=== PATIENT | male | born 1945 | race Caucasian/White ===

== ENCOUNTER 2019-03-30 12:26 | Emergency (ER) | payer OTHER, MEDICARE ==
[~2019-03-30] VITALS: Ht 182.9 cm; Wt 104.3 kg
[~2019-03-30 12:26] MED LIST: ADULT LOW DOSE81 MG PO; ALLOPURINOL 30300 M1 PO; AMLODIPINE-BEN1 EAC3 PO; CLARITIN10 MG PO; CRESTOR5 MG PO; FISH OIL 1,001000 M2 PO; GLUCOSAMINE HC500 MG PO; HYDROCODONE-AP1 EAC6 PO; INDOMETHACIN 5050 MG PO; LEVOTHROID100 MC1 PO; LEVOTHYROXIN0.137 M1 PO; NORCO 5-325 TA1 EACH PO; PERCOCET PO; PRILOSEC 20 MG20 MG PO; SENOKOT-S1 TA1 PO; UNICOMPLEX M TA1 TA1 PO; XARELTO10 MG PO
[2019-03-30 13:01] LABS: BASOPHILS 0.6 % (0.0-2.0); EOSINOPHILS 0.7 % (0.0-3.0); HEMATOCRIT 42.9 % (42.0-52.0); HEMOGLOBIN 14.4 gm/dL (14.0-18.0); LYMPHOCYTES 10.1 % (24.0-44.0); MCH 28.8 pg (26.0-34.0); MCHC 33.6 g/dL (28.0-37.0); MCV 85.6 fL (80.0-100.0); MONOCYTES 6.2 % (1.0-8.0); PLATELET COUNT 319 thou/uL (150-400); POLYS 82.4 % (36.0-66.0); RBC 5.01 mil/uL (4.50-6.00); RDW 13.9 % (10.5-14.5); WBC 19.4 thou/uL (4.0-11.0)
[2019-03-30 13:13] LABS: CALCIUM 9.6 mg/dL (8.5-10.1); CREATININE 1.2 mg/dL (0.7-1.3); POTASSIUM 3.8 mmol/L (3.5-5.1)
[2019-03-30] MEDS ORDERED: TUMS PO (13:16)
[2019-03-30 13:19] LABS: ALBUMIN 3.7 g/dL (3.4-5.0); TOTAL BILIRUBIN 0.5 mg/dL (<0.1-1.0)
[2019-03-30 13:29] LABS: URINE BILIRUBIN NEGATIVE (Negative); URINE BLOOD 3+ (Negative); URINE CLARITY CLEAR; URINE COLOR YELLOW; URINE GLUCOSE-RANDOM* NEGATIVE (Negative); URINE KETONES TRACE (Negative); URINE LEUKOCYTES TRACE (Negative); URINE NITRITE NEGATIVE (Negative); URINE PROTEIN (DIPSTICK) 1+ (Negative); URINE UROBILINOGEN 0.2 E.U./dl (0.2-1.0)
[2019-03-30 13:39] LABS: BACTERIA 1-9 Few /HPF (None Seen); CASTS None Seen /LPF (None Seen); CRYSTALS None Seen /LPF (None Seen); SQUAMOUS None Seen /LPF (0-3); URINE WBC 6-15 Few /HPF (0-5)
[2019-03-30] MEDS ORDERED: NORCO 5-325 TA1 EAC1 PO (15:57)
[2019-03-30] MEDS ORDERED: ZOFRAN ODT4 MG PO (15:57)
[2019-03-30 16:20] VITALS: BP 141/74
== END 2019-03-30 16:20 | disposition home or self-care (01) ==
LOC: ER 12:26
PROVIDERS: Emergency Medicine
DX: N20.0 Calculus of kidney (principal); I10 Essential (primary) hypertension; E78.00 Pure hypercholesterolemia, unspecified; E03.9 Hypothyroidism, unspecified; K21.9 Gastro-esophageal reflux disease without esophagitis; Z96.641 Presence of right artificial hip joint; Z90.49 Acquired absence of other specified parts of digestive tract; Z88.0 Allergy status to penicillin

== ENCOUNTER → 2019-08-18 | Outpatient (CLI) | payer OTHER, MEDICARE ==
[~2019-08-18] MED LIST changes: +NORCO 5-325 TA1 EAC1 PO; +TUMS PO; +ZOFRAN ODT4 MG PO
== END ==
LOC: MRI 09:39
DX: M47.817 Spondylosis without myelopathy or radiculopathy, lumbosacral region (principal); M43.17 Spondylolisthesis, lumbosacral region; M51.37 Other intervertebral disc degeneration, lumbosacral region; N28.1 Cyst of kidney, acquired

== ENCOUNTER 2020-02-16 14:47 | Inpatient (IN) | payer OTHER, MEDICARE ==
[~2020-02-16] VITALS: Ht 182.9 cm; Wt 108.9 kg
[2020-02-16] VITALS (14 sets, daily range): BP systolic 124–194; BP diastolic 59–96
[~2020-02-16 14:47] MED LIST changes: -LEVOTHYROXIN0.137 M1 PO; +SYNTHROID150 MCG PO
[2020-02-16 15:24] LABS: ABSOLUTE NEUTROPHILS 3.8 thou/uL (1.4-8.2); BASOPHILS 0.6 % (0.0-2.0); EOSINOPHILS 2.4 % (0.0-3.0); HEMATOCRIT 38.3 % (42.0-52.0); HEMOGLOBIN 13.2 gm/dL (14.0-18.0); LYMPHOCYTES 18.8 % (24.0-44.0); MCHC 34.4 g/dL (28.0-37.0); MCV 90.3 fL (80.0-100.0); MONOCYTES 9.3 % (1.0-8.0); PLATELET COUNT 238 thou/uL (150-400); POLYS 68.9 % (36.0-66.0); RBC 4.24 mil/uL (4.50-6.00); RDW 12.2 % (10.5-14.5); WBC 5.6 thou/uL (4.0-11.0)
[2020-02-16 15:36] LABS: ANION GAP 12 mmol/L (7-16); BUN 20 mg/dL (7-18); CALCIUM 9.5 mg/dL (8.5-10.1); CHLORIDE 105 mmol/L (98-107); CO2 25 mmol/L (21-32); CREATININE 1.1 mg/dL (0.7-1.3); GLUCOSE 107 mg/dL (74-106); POTASSIUM 4.1 mmol/L (3.5-5.1); SODIUM 142 mmol/L (136-145)
[2020-02-16 15:38] LABS: APTT 27.2 Seconds (24.5-32.8)
[2020-02-16 15:45] LABS: SGOT 27 U/L (15-37); SGPT 33 U/L (30-65); TOTAL BILIRUBIN 0.4 mg/dL (0.2-1.0); TOTAL PROTEIN 7.7 g/dL (6.4-8.2); TROPONIN-I <0.06 ng/mL (<0.06)
--- NOTE | 2020-02-16 16:31 | EKG ---
[facility] [place] [address] ELECTROCARDIOGRAM REPORT Name: HARINI HU Room #: [facility]#: [id number] Admission: 02/16/20 Attend Phys: Discharge: Date of : 47 Report #: [id number] THIS REPORT FOR: cc: Franki Rivas James A. DO Lundgren, Craig H. MD [facility] ~ THIS REPORT FOR: //name// [facility] ED Test Date: 2020-02-16 Test Time: 15:20:43 Pat Name: HARINI HU Department: Room: Gender: Real Estate Inspector: ebenoklupillo : 1945 Requested By: Lj Argueta Order Number: [id number] MD: Santhosh Canales Measurements Intervals [place] Rate: 56 P: 38 CT: 49 QRS: 38 QRSD: 99 T: 35 QT: 486 QTc: 470 Interpretive Statements Sinus bradycardia Otherwise normal tracing Compared to ECG 10/06/2015 08:45:23 No significant change was found Electronically Signed On 02-16-2020 16:29:03 CDT by Santhosh Canales [email or web address] <ELECTRONICALLY SIGNED> By: Santhosh Canales MD, [facility] 02/16/20 1629 1520 1520 Santhosh Canales MD, [facility] /EPI
[2020-02-16] MEDS ORDERED: NAPROSYN500 M1 PO (18:24)
[2020-02-16] MEDS ORDERED: AMBIEN5 MG PO (18:24)
--- NOTE | 2020-02-16 19:10 | NUR ---
SHINE () [phone] PLEASE CALL HER WITH ANY UPDATES THROUGHOUT THE NIGHT OR ANY TIME DURING STAY
--- NOTE | 2020-02-16 19:40 | NUR ---
PLEASE CALL PT'S PHARMACY TOMORROW 02/17/2020 DURING BUSINESS HOURS TO FIND OUT WHAT BP MEDICATION PT TAKES AND DOSAGE. PT DOES NOT REMEMBER AND IT IS NOT IN PT'S MEDICATION CLAIM HISTORY IN THE EMAR. ATTEMPTED TO CALL BY THIS NURSE AT THIS TIME AND PHARMACY IS CLOSED. PHONE: [phone]. MED REC IS COMPLETED OTHER THAN THIS MEDICATION.
--- NOTE | 2020-02-16 22:30 | NUR ---
PT CAME VIA CART ACCOMPANIED BY DRIVE IN WAITER/WAITRESS TO ICU. PT ALERT AND ORIENTED x4. STRENGTH IS STRONG IN ALL EXTREMITIES. BP WAS SYSTOLIC >190 ON ARRIVAL.CARDENE DRIP WAS TURNED OFF. PT WAS PUT BACK ON THE CARDENE DRIP AT 5MG/HR. NIH STROKE SCALE ASSESSMENT WAS PERFORMED. PT SCORED 0. PT WAS ORIENTED TO THE ROOM AND ICU CALL LIGHT. FALL PRECAUTIONS IN PLACE. DR. GOMEZ NOTIFIED OF PT ARRIVAL AND ORDERED A MRI FOR TOMORROW MORNING. NO CONCERNS AND COMPLAIN NOTED FROM THE PT AT THIS MOMENT. CONTINUE TO MONITOR.
[2020-02-17] VITALS (39 sets, daily range): BP systolic 104–168; BP diastolic 58–107
[2020-02-17 06:02] LABS: HEMATOCRIT 35.6 % (42.0-52.0); HEMOGLOBIN 12.1 gm/dL (14.0-18.0); MCH 30.8 pg (26.0-34.0); MCHC 34.1 g/dL (28.0-37.0); MCV 90.4 fL (80.0-100.0); PLATELET COUNT 213 thou/uL (150-400); RBC 3.94 mil/uL (4.50-6.00); RDW 12.4 % (10.5-14.5); WBC 4.2 thou/uL (4.0-11.0)
[2020-02-17 06:17] LABS: ANION GAP 10 mmol/L (7-16); BUN 13 mg/dL (7-18); CALCIUM 8.6 mg/dL (8.5-10.1); CHLORIDE 108 mmol/L (98-107); CHOLESTEROL 192 mg/dL (<200); CO2 23 mmol/L (21-32); CREATININE 0.8 mg/dL (0.7-1.3); GLUCOSE 132 mg/dL (74-106); HDL CHOLESTEROL 40 mg/dL (>40); LDL CHOLESTEROL 113 mg/dL (<100); MAGNESIUM 2.1 mg/dL (1.8-2.4); POTASSIUM 3.5 mmol/L (3.5-5.1); SODIUM 141 mmol/L (136-145); TC:HDL 4.8 Ratio (Not establshd); TRIGLYCERIDE 195 mg/dL (<150); VLDL 39 mg/dL (<40)
[2020-02-17 06:20] LABS: SERUM ASSESSMENT Clear
[2020-02-17 08:15] LABS: ABSOLUTE NEUTROPHILS 3.2 thou/uL (1.4-8.2); METAMYELOCYTES 1 %
[2020-02-17 08:16] LABS: ANISOCYTOSIS SLIGHT
--- NOTE | 2020-02-17 10:32 | NUR ---
metal flow coordinator to see patient. this rn at bedside upon arrival of patient to ER. patient severely aphasic and confused however today speech is clear and fluent. pt is A&Ox3 with NIHSS-0. stroke education given to patient and stroke education left with patient to give to family. I will continue to follow this patient through stay. Significant improve since yesterday.
--- NOTE | 2020-02-17 13:51 | NUR ---
DR. LEE ROUNDED ON PATIENT AT 1000, NO NEW ORDERS CONTINUE WITH PLAN OF CARE. DR. GOMEZ ROUNDED AT 1100, PLAN TO TRANSFER PT OUT OF ICU AFTER MRI. PATIENT STABLE NO CHANGES IN VSS, NO NEURO CHANGES. TO MRI AT 1400 WITH THIS RN.
--- NOTE | 2020-02-17 17:00 | NUR ---
INITIAL ASSESSMENT: SW reviewed chart and spoke with nursing and attending physician. Pt was admitted from home due to acute CVA. Pt currently in ICU. Therapy evals and 5N consult ordered. Neuro consulted. Pt to have MRI today. MANDO spoke with pts' , Martina, via phone. Introduced role of SW. Pt is normally alert/orientated x 4. Pt and spouse live at home. Prior to admission, pt was independent with ADLs. Pt with hx of spinal stenosis and normally uses a cane or walker to assist with ambulation. Pt is planning on having back surgery in February. No hx of services or post-acute placement. Pt has done outpatient therapy at [facility]. Pt's PCP is DR. Rivas. Pt's goal is to return home when medically stable. Awaiting therapy and 5N evals at this time. SW is following to assist as needed with discharge planning.
[2020-02-18 00:07] LABS: GLYCOHEMOGLOBIN (HGB A1C) 6.6 % (4.8-5.6)
[2020-02-18 04:00] VITALS: BP 182/85
--- NOTE | 2020-02-18 07:26 | NUR ---
PROGRESS PT TRANSFERRED FROM ICU VIA BED TO ROOM 460 VSS BP SLIGHTLY ELEVATED 182/85 REMAINING VS WNL. PT DENIES PAIN NO SKIN BREAKDOWN NOTED, EXTERNAL CATHETER IN PLACE PT UP WITH 1 AND GB HOPES TO DC HOME TODAY CONTINUE POC
[2020-02-18 07:47] VITALS: BP 158/79
--- NOTE | 2020-02-18 16:11 | NUR ---
THERAPY INDICATED THEY ANTICIPATED DOING AFTERNOON TREATS WITH PT. AWAITING NOTES AND RECOMMENDATIONS FROM THESE TREATS TO DETERMINE DC NEEDS. PT HAS FWW AND CANE TO ASSIST WITH MOBILITY UPON DC. 5N ASSESSED AND INDICTED THAT PT IS TOO HIGH LEVEL FOR ACUTE REHAB OF THERAPY SESSIONS THIS AM. CM TO FOLLOW INDICATED WITH DC PLANNING.
--- NOTE | 2020-02-18 16:33 | NUR ---
Assumed pt care this am, VS have been stable new medication given for elevated bp. Speech is not slurred and no facial droops have been noted. WAs able to work with PT and OT today, condom cat in place drainnig light yellow urine. Diet and medications are well lorated. POC followed with no signs or verbalizatiosn of distress noted.
[2020-02-18 16:41] VITALS: BP 147/95
[2020-02-18] MEDS ORDERED: PLAVIX 75 MG TA75 MG PO (17:20)
[2020-02-18] MEDS ORDERED: ASA81BEC PO (17:20)
[2020-02-18] MEDS ORDERED: BENAZEPRIL HCL20 MG PO (17:20)
[2020-02-18] MEDS ORDERED: LIPITOR 20 MG T20 M1 PO (17:20)
--- NOTE | 2020-02-22 18:41 | EEG ---
[facility] [place] [address] ELECTROENCEPHALOGRAM Name: HARINI HU Room #: 460-P [facility] IN M.R.#: [id number] Admission: 02/16/20 Attend Phys: Aramis Nava MD Discharge: 02/18/20 Date of : 47 Report #: [id number] THIS REPORT FOR: //name// CC: Franki Nava DATE OF SERVICE: 02/17/2020 This patient is being evaluated for an episode of altered mental status. EEG was done to evaluate that. EEG demonstrates a background activity of about 8 Hz and 30 microvolt. It goes slower than that. The patient goes to sleep that is associated with bilateral slowing and vertex sharp waves. Photic stimulation is unremarkable. Throughout the record, no active epileptiform activity was noticed. IMPRESSION: This patient's EEG is intermixed with theta range slowing on both sides. That is a nonspecific abnormality, which can occur with dementia, encephalopathy, effect of psychotropic medication, drowsiness, etc. No active epileptiform activity which can explain the patient's symptoms were noticed. Thank you very much for this referral. <ELECTRONICALLY SIGNED> By: Diego Mendoza MD 02/22/20 1841 0610 [id number] Diego Mendoza MD /nt
--- NOTE | 2020-02-22 18:41 | HC ---
[facility] [address] CONSULTATION Name: FRITZHARINI Room #: 460-P [facility] IN M.R.#: [id number] Admission: 02/16/20 Attend Phys: Aramis Nava MD Discharge: 02/18/20 Date of : 47 Report #: [id number] THIS REPORT FOR: cc: Franki Rivas James A. DO Khosla, Parveen K. MD ~ CC: Franki Nava DATE OF SERVICE: 02/16/2020 HISTORY OF PRESENT ILLNESS: This is a 74-year-old male patient who was seen by me in the Emergency Room for stroke protocol. The note is being dictated now. History and exam was done very acutely in this patient and this is an abbreviated note and I will dictate an addendum later on. The patient presented with acute onset of speech difficulty and marked aphasia. It took some time to determine the time of onset, but it looks like his last seen normal was around 12:45. He was definitely normal at that time, but he was probably normal even after that some time. Facial problem was also noticed at that time, so he was well within the window. In fact, he was within [address] Argueta has already ordered TPA on him. He has ordered the TPA after confirming that he does not have any contraindication. I went over with the patient again to see if there is any contraindication. The mentioned that he has no contraindication and I went over the exclusion criteria one by one. I reviewed his CT scan and then I reviewed about 1 suspicion area with the radiologist, who read the CT. He does not have any concern about the CT and he indicated there are no acute changes, but CT scan does show chronic changes, which does increase his chances of a bleed. The patient is not able to understand the things because he is completely aphasic. He starts a sentence, then his speech gets garbled and he cannot bring it out. So, I talked to the . I discussed with her indication, potential complication, and alternatives of TPA. I discussed with him that at this stage we cannot say with certainty that he had a stroke. If we try to confirm by doing further testing, either we will delay the treatment or we will go outside the window. We have to move with a presumptive diagnosis of stroke. She understood that very well. She understands the catastrophic complication of intracerebral bleed, which is fatal many times. She also understands his chance of bleeding is going to be higher because of deep white matter ischemic changes. After explaining all of it to the patient, TPA was started. The patient's blood was checked first, his GFR is 66. CT stroke protocol is already ordered. If he does have a thrombus, then he will be transferred to another facility, but if he does not have thrombus, he will be monitored here in ICU. He can have a dissection of one of the vessels because he does go to a chiropractor, but that is not considered a strict contraindication and that is a relative contraindication. The patient will be going to ICU and if he needs blood pressure monitoring and titration that will [address] [address] CONSULTATION Name: HARINI HU Room #: 460-P [facility] IN [facility].#: [id number] Admission: 02/16/20 Attend Phys: Aramis Nava MD Discharge: 02/18/20 Date of : 47 Report #: [id number] be done by Cardene because his heart rate is running low, his blood pressure was high, he did get the first dose, but his pulse rate did not change. Thank you very much for allowing me to share in the management of this patient and we will dictate another note after other workup is available. <ELECTRONICALLY SIGNED> By: Diego Mendoza MD 02/22/20 1841 1558 1843 Diego Mendoza MD /nt
== END 2020-02-18 20:14 | disposition home or self-care (01) | DRG 61 ==
LOC: ER 14:47 → ICU 17:13 → EROBS 17:13 → ICU 20:30 → 4W 02-17 20:43
PROVIDERS: Emergency Medicine; Nurse Practitioner; ADMIT Internal Medicine
DX: I63.9 Cerebral infarction, unspecified (principal); G93.41 Metabolic encephalopathy; I16.1 Hypertensive emergency; I16.0 Hypertensive urgency; I10 Essential (primary) hypertension; E78.00 Pure hypercholesterolemia, unspecified; Z96.641 Presence of right artificial hip joint; E03.9 Hypothyroidism, unspecified; K21.9 Gastro-esophageal reflux disease without esophagitis; E78.5 Hyperlipidemia, unspecified; G89.29 Other chronic pain; M54.9 Dorsalgia, unspecified; E66.9 Obesity, unspecified; C61 Malignant neoplasm of prostate; G31.9 Degenerative disease of nervous system, unspecified; Z79.82 Long term (current) use of aspirin; Z90.49 Acquired absence of other specified parts of digestive tract; Z88.0 Allergy status to penicillin; Z68.32 Body mass index [BMI] 32.0-32.9, adult; Z79.899 Other long term (current) drug therapy
CPT/HCPCS: 10045; 10078

== ENCOUNTER → 2020-02-26 | Outpatient (CLI) | payer OTHER, MEDICARE ==
[~2020-02-26] MED LIST changes: +AMBIEN5 MG PO; +ASA81BEC PO; +BENAZEPRIL HCL20 MG PO; +LIPITOR 20 MG T20 M1 PO; +NAPROSYN500 M1 PO; +PLAVIX 75 MG TA75 MG PO
== END ==
LOC: SJCVC 15:03
PROVIDERS: ATTEND Internal Medicine
DX: Z01.810 Encounter for preprocedural cardiovascular examination (principal); R06.83 Snoring; I10 Essential (primary) hypertension; M17.11 Unilateral primary osteoarthritis, right knee; M48.00 Spinal stenosis, site unspecified; Z79.82 Long term (current) use of aspirin; Z79.899 Other long term (current) drug therapy; Z86.73 Personal history of transient ischemic attack (TIA), and cerebral infarction without residual deficits

== ENCOUNTER → 2020-03-09 | Outpatient (CLI) | payer OTHER, MEDICARE | LOC: SJCVCIMAG 03-03 15:57 | PROVIDERS: ATTEND Internal Medicine | DX: R06.02 Shortness of breath (principal); I10 Essential (primary) hypertension; E78.5 Hyperlipidemia, unspecified; E66.9 Obesity, unspecified; Z79.82 Long term (current) use of aspirin; Z79.899 Other long term (current) drug therapy; Z88.0 Allergy status to penicillin ==

== ENCOUNTER → 2020-03-23 | Outpatient (CLI) | payer OTHER, MEDICARE ==
[~2020-03-23] MED LIST changes: +ALLOPURINOL 10100 M3 PO; +BENAZEPRIL HCL40 MG PO; +CRESTOR10 MG PO
== END ==
LOC: SJCVC 10:31
PROVIDERS: ATTEND Internal Medicine
DX: I10 Essential (primary) hypertension (principal); E78.5 Hyperlipidemia, unspecified; Z86.73 Personal history of transient ischemic attack (TIA), and cerebral infarction without residual deficits; Z79.82 Long term (current) use of aspirin; Z79.899 Other long term (current) drug therapy; M17.11 Unilateral primary osteoarthritis, right knee

== ENCOUNTER 2020-03-30 08:02 | Inpatient (IN) | payer OTHER, MEDICARE ==
[2020-03-30] VITALS (36 sets, daily range): BP systolic 118–213; BP diastolic 63–104
[~2020-03-30] VITALS: Ht 182.9 cm; Wt 109.9 kg
[~2020-03-30 08:02] MED LIST changes: -ALLOPURINOL 10100 M3 PO; -BENAZEPRIL HCL40 MG PO
[2020-03-30] MEDS ORDERED: ALLOPURINOL 10100 M3 PO (09:21)
[2020-03-30 09:23] LABS: HEMATOCRIT 38.3 % (42.0-52.0); HEMOGLOBIN 12.8 gm/dL (14.0-18.0); MCH 29.9 pg (26.0-34.0); MCHC 33.5 g/dL (28.0-37.0); MCV 89.2 fL (80.0-100.0); RBC 4.3 mil/uL (4.50-6.00); RDW 12.7 % (10.5-14.5); WBC 4.6 thou/uL (4.0-11.0)
[2020-03-30 09:28] LABS: CALCIUM 9.5 mg/dL (8.5-10.1); CREATININE 1.1 mg/dL (0.7-1.3)
--- NOTE | 2020-03-30 14:31 | EKG ---
[facility] [place] [place] [address] ELECTROCARDIOGRAM REPORT Name: FRITZHARINI Huizar Room #: 250-P [facility] IN M.R.#: [id number] Admission: 03/30/20 Attend Phys: Maurizio Hernandez Discharge: Date of : 47 Report #: [id number] THIS REPORT FOR: cc: Franki Rivas James A. DO Couchonnal, Luis F. MD ~ THIS REPORT FOR: //name// [facility] Test Date: 2020-03-30 Test Time: 09:23:45 Pat Name: HARINI HU Department: Room: 250 Gender: M Camp Program Director: RADHA : 1945 Requested By: Maurizio Hernandez Order Number: [id number] MD: Lam Hull Measurements Intervals [place] Rate: 56 P: 19 IA: 195 QRS: 17 QRSD: 98 T: 32 QT: 439 QTc: 424 Interpretive Statements Sinus rhythm Compared to ECG 02/16/2020 15:20:43 Sinus bradycardia no longer present Electronically Signed On 03-30-2020 14:31:07 CDT by Lam Hull [email or web address] <ELECTRONICALLY SIGNED> By: Lam Hull MD 03/30/20 1431 0923 Lam Hull MD /EPI
[2020-03-30 14:44] LABS: HEMOGLOBIN 12.8 gm/dL (14.0-18.0); MCH 29.9 pg (26.0-34.0); MCHC 33.8 g/dL (28.0-37.0); MCV 88.5 fL (80.0-100.0); RBC 4.29 mil/uL (4.50-6.00); RDW 12.8 % (10.5-14.5); WBC 4.8 thou/uL (4.0-11.0)
[2020-03-30 14:50] LABS: APTT 30.6 Seconds (24.5-32.8); PROTIME 10.3 Seconds (9.3-11.4)
[2020-03-30 14:54] LABS: ALBUMIN 3.7 g/dL (3.4-5.0); CREATININE 1.1 mg/dL (0.7-1.3); POTASSIUM 3.7 mmol/L (3.5-5.1); TOTAL BILIRUBIN 0.5 mg/dL (0.2-1.0); TOTAL PROTEIN 7.1 g/dL (6.4-8.2)
[2020-03-30 15:00] LABS: CALCIUM 9.6 mg/dL (8.5-10.1)
--- NOTE | 2020-03-30 17:19 | NUR ---
ASSUMED CARE AT 1515, ASSESSMENT AND VITAL SIGNS COMPLETED PER ICU PROTOCOL. PT ARRIVED FROM CATH LABX2 PERSONNEL. PT RECEIVED TPA, RN FOLLOWING STROKE PROTOCOL. DR. GOMEZ BEDSIDE GIVING ORDERS. RN WENT TOOK PT TO CT WITH POPULATION HEALTH MANAGER FOR CT W/ CONTRAST. PROTECTOR PLATE ATTACHER WAS GIVEN UPON RESULTS. PLAN OF CARE DISCUSSED WITH DR. GOMEZ, RN WILL CONTINUE TO MONITOR.
[2020-03-31] VITALS (36 sets, daily range): BP systolic 130–191; BP diastolic 61–111
[2020-03-31 00:02] LABS: CHOLESTEROL 143 mg/dL (<200); HDL CHOLESTEROL 52 mg/dL (>40); LDL CHOLESTEROL 58 mg/dL (<100); SERUM ASSESSMENT Clear; TC:HDL 2.8 Ratio (Not establshd); TRIGLYCERIDE 166 mg/dL (<150); VLDL 33 mg/dL (<40)
[2020-03-31 04:30] LABS: HEMATOCRIT 32.8 % (42.0-52.0); HEMOGLOBIN 11.2 gm/dL (14.0-18.0); MCH 30.2 pg (26.0-34.0); RBC 3.69 mil/uL (4.50-6.00); WBC 4.5 thou/uL (4.0-11.0)
[2020-03-31 05:10] LABS: CALCIUM 8.6 mg/dL (8.5-10.1); POTASSIUM 3.5 mmol/L (3.5-5.1)
--- NOTE | 2020-03-31 06:19 | NUR ---
Received report from offgoing RN and assumed patient care. Patient is AAOx3 and noted to have sensory loss in the left foot but regained sensation this a.m. Patient placed in restraints d\t impulsiveness and this RN felt he may try to take off IV as he was taking off the monitor leads and educated several time before the restraints were placed. VS remained stable and no acute events occurred during this shift.
--- NOTE | 2020-03-31 07:40 | NUR ---
RECEIVED REPORT FROM EFRAIN GOMEZ. ASSUMED CARE OF PATIENT. NIH SCORE 0 AT THIS TIME.
--- NOTE | 2020-03-31 14:54 | NUR ---
chart review. unable to visit with pt, resting. cm spoke with his geremias via phone . intro to cm, transition of care, ie rehab. noted per chart pt was independent prior to hospital . has cane and walker. drives vehicle. outpt rehab at [facility] in past. no inpt rehab. will cont following as needed for dc needs. 5n following.
--- NOTE | 2020-03-31 17:36 | HC ---
[facility] [place] [address] CONSULTATION Name: HARINI HU Room #: [facility] IN .R.#: [id number] Admission: 03/30/20 Attend Phys: Maurizio Hernandez Discharge: Date of : 47 Report #: [id number] THIS REPORT FOR: cc: Franki Rivas,Diego Parra MD ~ CC: Maurizio Rivas DATE OF SERVICE: 03/30/2020 HISTORY OF PRESENT ILLNESS: This 74-year-old male patient who was seen by me for a code stroke. The patient was discussed with nurses multiple times and I talked to the mortgage coordinator multiple times, numerous discussions with the was carried out. I talked to the radiologist and subsequently to the neuroradiologist. The patient started having acute onset of aphasia around 1:15. This was after 1-2 hours of cardiac catheterization and he was fine after the cardiac catheterization at least for 1-2 hours. He did not get any blood thinner in the cardiac catheterization. He has severe coronary artery disease, but when I saw him first time he was completely aphasic. It has fluctuated and the problem is he had similar symptoms, the last time he was here and he recovered from it, but we did not find a whole lot at that time. He did receive TPA at that time. He did not have any focal deficit, but some neglect was noticed as I understood, but that is questionable finding, I never saw any focal motor deficit. I had numerous discussions with the patient's . I told her that I am not certain that what the right course is. He has symptoms suggestive of left hemispheric ischemic event, so we can think to do is give him TPA, but the problem is he was like this and the last time we did not find anything. I got the CT angio and perfusion done, but went ahead and had the TPA mixed. The initial report from the radiologist was that this patient's perfusion scan is normal. She was going to send it to the neuroradiologist. Therefore, I canceled his TPA, but subsequently neuroradiologist think he has a defect on the perfusion on the left side. Because of that, I went ahead and gave him TPA. His blood pressure has gone up in the meantime and we are starting a Cardene drip in this patient to lower the blood pressure. A decision to give TPA was very difficult and both sides of the things were discussed with the . She described it as a walton. That is what I think it is because if we give him TPA and if he bleeds we wish we have not done it. If we do not give him TPA and he becomes worse than we wish we had given TPA. She understood both aspects very well and ultimately it was decided to give him TPA after the neuroradiologist had a different view than the radiologist about the perfusion scan, but we do not have ____. is comfortable with it. 0.9 mg/kg of the body weight and 0.6 mg/kg of the body weight has been found to be equally effective. Therefore, [address] [address] CONSULTATION Name: HARINI HU Room #: 250-P [facility] IN M.R.#: [id number] Admission: 03/30/20 Attend Phys: Dillon. Lammoglia Discharge: Date of : 47 Report #: [id number] I gave him a dose of 0.6 mg/kg of the body weight. We will keep the blood pressure somewhat high and I will give him a fluid bolus. The patient appeared to be showing some improvement since that time and it is very difficult case and the understood and this is what she wanted to do and I have discussed virtually all the aspect with the in great detail. Thank you very much for this referral and if you have any question, please feel free to contact me. I spent about 90 minutes of time taking care of this patient today and majority of time was spent counseling and in the critical care. <ELECTRONICALLY SIGNED> By: Diego Mendoza MD 03/31/20 1736 1613 1641 Diego Mendoza MD /nt
--- NOTE | 2020-03-31 17:36 | HC ---
[facility] [place] [address] CONSULTATION Name: HARINI HU Room #: [facility] IN .R.#: [id number] Admission: 03/30/20 Attend Phys: Maurizio Hernandez Discharge: Date of : 47 Report #: [id number] THIS REPORT FOR: cc: Franki Rivas,Diego Parra MD ~ CC: Maurizio Rivas DATE OF SERVICE: 03/30/2020 HISTORY OF PRESENT ILLNESS: This is a 74-year-old male patient who was seen by me as a stroke protocol. I discussed the patient with fiscal manager, resource coordinator, nurse looking after this patient, patient's numerous times today. The patient was noticed to have acute onset of severe aphasia at about 1:15. This happened after geoscience laboratory technician, fiscal manager and the nurses confirmed that he did not get any blood thinner including an Angiocath or heparin during this procedure. He used to be on aspirin and Plavix and presently he just takes aspirin, he is not on Plavix. He was examined repeatedly and his aphasia continued and it was severe. He did not have any other focal deficit on my examination, but the nurses have noticed that he has trouble with the left side of the body and he was not moving and had some neglect there. My problem with this patient DICTATION ENDS HERE <ELECTRONICALLY SIGNED> By: Diego Mendoza MD 03/31/20 1736 1546 1552 Diego Mendoza MD /nt
--- NOTE | 2020-03-31 17:37 | EEG ---
[facility] [place] [address] ELECTROENCEPHALOGRAM Name: HARINI HU Room #: 250-P [facility] IN M.R.#: [id number] Admission: 03/30/20 Attend Phys: Maurizio Thomson Discharge: Date of : 47 Report #: [id number] THIS REPORT FOR: //name// CC: Maurizio Rivas DATE OF SERVICE: 03/31/2020 FINDINGS: This patient keeps having episodes of TIA-like symptoms. EEG was done by placing the electrode by standard 10-20 system of electrode placement. Both referential and sequential montages were used for recording. Background activity in this patient's EEG is about 9 Hz and 30 microvolts. The patient went to sleep and that is associated with bilateral slowing and vertex sharp waves. Throughout the record, no active epileptiform activity was noticed. IMPRESSION: This EEG does not demonstrate any clear-cut epileptiform activity. It is intermixed with slight theta range slowing, which is a nonspecific finding. <ELECTRONICALLY SIGNED> By: Diego Mendoza MD 03/31/20 1737 1601 1609 Diego Mendoza MD /nt
--- NOTE | 2020-03-31 18:50 | NUR ---
PT. JUST ROLLED INTO OUR UNIT IN THE WHEELCHAIR FROM ICU, REPORT WAS GIVEN. HE IS AOX4, AMBULATES TO HIS BED STEADILY WITH ONE ASSIST. DENIES ANY NUMBNESS OR TINGLING AT PRESENT, VISUAL FIELD INTACT WEARS GLASSES. ON THE PHONE WITH FAMILY MEMBERS DISCUSSING HIS POSSIBLE DISCHARGE TOMORROW. IV SITE IS C,D,I NO SIGN'S IF INFILTRATION, FLUIDS INFUSING NS AT 100/HR. SINUS KAYLEE ON THE MONITOR AT 59, NO ECTOPY. RIGHT GROIN SITE IS HEMATOMA FREE, C, D,I.
[2020-04-01 00:24] VITALS: BP 154/95
[2020-04-01 03:37] VITALS: BP 174/71
--- NOTE | 2020-04-01 04:17 | NUR ---
ASSUMED PT CARE AT 1900. PT IS ALERT AND ORIENTED. NO SIGN OF DISTRESS NOTED PT IS STABLE. DENIES ANY PAIN. FALL PRECAUTION IN PLACE. ASSESSMENT COMPLETED AND DOCUMENTED. GROIN SITE IS INTACT. SCHEDULED MEDS ADMINISTERED TO PT. NO SIGN OF DISTRESS NOTED IN PT. CONTINUE TO MONITOR PT. ELEVATED BP NOTED. NO FURTHER NEEDS AT THIS TIME
[2020-04-01 08:00] VITALS: BP 175/108
[2020-04-01] MEDS ORDERED: PLAVIX 75 MG TA75 MG PO (09:19)
[2020-04-01] MEDS ORDERED: BENAZEPRIL HCL40 MG PO (09:48)
--- NOTE | 2020-04-01 10:59 | NUR ---
PT ASSESSED, VSS, AM MEDS GIVEN, PT REFUSED ALLOPURINAL STATING THAT HE ONLY TAKES IT WHEN HE NEEDS IT, POC REVIEWED, PT VERBALIZED UNDERSTANDING, DR MOE IN TO SEE PT, PLANS BEING MADE FOR DISCHARGE TODAY. PT AWARE, HIS IS ON HER WAY, WILL MONITOR
[2020-04-01 11:26] VITALS: BP 175/108
--- NOTE | 2020-04-01 12:15 | NUR ---
PT LEFT WITH AND TOOK ALL BELONGINGS AFTER DC INSTRUCTIONS REVIEWED AND BOTH VERBALIZED UNDERSTANDING. TELE AND IV REMOVED PRIOR TO PT LEAVING
--- NOTE | 2020-04-02 12:15 | D ---
[facility] [place] [address] DISCHARGE SUMMARY Name: HARINI HU Room #: 203-P [facility] IN M.R.#: [id number] Admission: 03/30/20 Attend Phys: Maurizio Hernandez Discharge: 04/01/20 Date of : 47 Report #: [id number] THIS REPORT FOR: cc: Franki Rivas James A. DO Lammoglia, Francisco J. MD ~ THIS REPORT FOR: //name// CC: Maurizio Rivas DATE OF SERVICE: 04/01/2020 ADMITTING DIAGNOSIS: Acute neurologic change. DISCHARGE DIAGNOSES: 1. Transient ischemic attack. 2. Coronary artery disease. PROCEDURES PERFORMED: 1. Left heart catheterization. 2. Intracranial stroke protocol, TPA infusion. DISCHARGE MEDICATIONS: 1. Home cardiac meds. 2. See discharge orders for all medications. BRIEF CLINICAL HISTORY: See history and physical in chart. HOSPITAL COURSE: The patient was admitted to the hospital and underwent uncomplicated left heart catheterization. This demonstrated significant coronary artery disease and was being scheduled for outpatient consultation with Cardiothoracic Surgery. Approximately an hour and 45 minutes to 2 hours post-procedure, the patient developed a headache without any neurologic deficits. I was called and evaluated the patient without any focal deficits. Apparently within 10 minutes of me leaving, the patient started having slurred speech and difficulty with depth perception which was similar to a prior event that occurred in January of this year. A stroke alert was called and Neurology was evaluated who recommended treatment. He underwent treatment as per Neurology and appeared to demonstrate improvement later the same day. On the second hospitalized day, his neurologic exam normalized to his baseline and his mentation was back to his baseline. He was monitored one more day with assessment of MRIs, etc., with apparently no evidence of tissue damage. He is [facility] [address] [place] [address] DISCHARGE SUMMARY Name: HARINI HU Room #: 203-P [facility]#: [id number] Admission: 03/30/20 Attend Phys: Maurizio Hernandez Discharge: 04/01/20 Date of : 47 Report #: [id number] then being discharged in stable condition and followup with previously stated discharge instructions and medications. <ELECTRONICALLY SIGNED> By: Maurizio Hernandez MD 04/02/20 1215 1633 1828 Maurizio Hernandez MD /nt
--- NOTE | 2020-04-04 09:57 | NUR ---
NIHSS stroke assessment completed on 03/30/20 @ 13:45 upon arrival to kiln labourer recovery following a code stroke activation. THis RN (managed care coordinator) completed task as well as failed swallow screen immediately following. information given to dr cramer upon his arrival to room.
== END 2020-04-01 12:16 | disposition home or self-care (01) | DRG 92 ==
LOC: CATH 08:02 → ICU 14:06 → 2N 03-31 18:32
PROVIDERS: Nurse Practitioner Family; Psychiatry & Neurology Neuromuscular Medicine; ADMIT Internal Medicine; ATTEND Internal Medicine
PROC: B2111ZZ Fluoroscopy of Multiple Coronary Arteries using Low Osmolar Contrast (ICD-10-PCS; principal; 2020-04-01)
PROC: 4A023N7 Measurement of Cardiac Sampling and Pressure, Left Heart, Percutaneous Approach (ICD-10-PCS; principal; 2020-04-01)
PROC: 3E03317 Introduction of Other Thrombolytic into Peripheral Vein, Percutaneous Approach (ICD-10-PCS; principal; 2020-04-01)
DX: I97.820 Postprocedural cerebrovascular infarction following cardiac surgery (principal); D68.69 Other thrombophilia; E78.00 Pure hypercholesterolemia, unspecified; I10 Essential (primary) hypertension; Z96.641 Presence of right artificial hip joint; E03.9 Hypothyroidism, unspecified; K21.9 Gastro-esophageal reflux disease without esophagitis; I25.10 Atherosclerotic heart disease of native coronary artery without angina pectoris; E78.5 Hyperlipidemia, unspecified; I65.23 Occlusion and stenosis of bilateral carotid arteries; Z90.49 Acquired absence of other specified parts of digestive tract; Z88.0 Allergy status to penicillin; Z82.49 Family history of ischemic heart disease and other diseases of the circulatory system; Z82.3 Family history of stroke
CPT/HCPCS: 10078; 10081

== ENCOUNTER → 2020-04-18 | Outpatient (CLI) | payer OTHER, MEDICARE ==
[~2020-04-18] MED LIST changes: +ALLOPURINOL 10100 M3 PO; +BENAZEPRIL HCL40 MG PO
== END ==
LOC: SJCVC 09:53
PROVIDERS: ATTEND Internal Medicine
DX: Z01.810 Encounter for preprocedural cardiovascular examination (principal); R00.1 Bradycardia, unspecified; I25.10 Atherosclerotic heart disease of native coronary artery without angina pectoris; I10 Essential (primary) hypertension; M48.00 Spinal stenosis, site unspecified; M17.11 Unilateral primary osteoarthritis, right knee; Z86.73 Personal history of transient ischemic attack (TIA), and cerebral infarction without residual deficits; Z79.82 Long term (current) use of aspirin; Z79.899 Other long term (current) drug therapy

== ENCOUNTER → 2020-08-05 | Outpatient (CLI) | payer OTHER, MEDICARE | LOC: LAB 11:19 | PROVIDERS: ATTEND Nurse Practitioner | DX: U07.1 COVID-19 (principal) ==

== ENCOUNTER → 2020-12-06 | Outpatient (CLI) | payer OTHER, MEDICARE ==
[~2020-12-06] VITALS: Ht 182.9 cm; Wt 104.3 kg
[2020-12-06 11:47] VITALS: BP 161/78
--- NOTE | 2020-12-09 16:54 | LINQ ---
[facility] [place] [address] LINQ PROCEDURE REPORT Name: FRITZHARINI Huizar Room #: REG CARMEN Almaraz#: [id number] Admission: 12/06/20 Attend Phys: Maurizio Hernandez Discharge: Date of : 47 Report #: [id number] THIS REPORT FOR: cc: Franki Rivas James A. DO Lammoglia, Francisco J. MD ~ APPROVED REPORT Study performed: 12/06/2020 12:11:42 Patient Status: Out-Patient Room #: Event Personnel: Maurizio Hernandez MD Exam: Insertion of an implantable loop recorder Indications: 75-year-old male patient with recurrent cryptic embolic strokes The patient is a 75 year-old male with a history of Recurrent cryptic strokes without evidence of carotid artery disease. Implanted Devices: [employer] Reveal LINQ; Model # LNQ11; Serial # [id number]; Use By 2021-07-20 Procedure The patient underwent informed consent. We discussed the details of the procedure including the risks, which include, but not limited to bleeding, infection, vascular damage, cardiac perforation, and pneumothorax. After informed consent was obtained the patient was brought to the cardiac catheterization prepped and hold. Left chest was prepped and draped in usual sterile manner. 1% lidocaine was then instilled in the proposed incision site utilizing a 25-gauge needle. Using a 27-gauge spinal needle the lidocaine was then instilled along the proposed insertion tract. Utilizing 11 blade a small incision was made in the skin along the lines of Leobardo. Using both sharp and blunt dissection a pocket was developed and the device was deployed utilizing the enclosed deployment tool. Underlying subcutaneous tissue was closed with 2 simple interrupted sutures and the skin was closed with a 3-0 absorbable running subcuticular. Dermabond was utilized Steri-Strips 4 x 4 OpSite. Patient tolerated procedure well. Electrode Parameters P wave analysis was excellent [facility] [place] [address] [employer] PROCEDURE REPORT Name: HARINI HU Room #: REG [facility]#: [id number] Admission: 12/06/20 Attend Phys: Maurizio Ramirez Discharge: Date of : 47 Report #: [id number] Conclusion 1. Successful insertion of an implantable loop recorder Recommendations 1. Routine post loop recorder insertion protocol <ELECTRONICALLY SIGNED> By: Maurizio Hernandez MD 12/09/204 53 53 Maurizio Hernandez MD /INF
== END | disposition home or self-care (01) ==
LOC: CATH 10:59
PROVIDERS: ATTEND Internal Medicine
DX: I63.9 Cerebral infarction, unspecified (principal); I10 Essential (primary) hypertension; E78.00 Pure hypercholesterolemia, unspecified; E03.9 Hypothyroidism, unspecified; K21.9 Gastro-esophageal reflux disease without esophagitis; Z98.890 Other specified postprocedural states; Z79.899 Other long term (current) drug therapy; Z90.49 Acquired absence of other specified parts of digestive tract; Z96.641 Presence of right artificial hip joint; Z88.0 Allergy status to penicillin; Z87.442 Personal history of urinary calculi

== ENCOUNTER → 2021-07-06 | Outpatient (CLI) | payer OTHER, MEDICARE | LOC: SJCVC 13:26 | PROVIDERS: ATTEND Internal Medicine | DX: I10 Essential (primary) hypertension (principal); I25.10 Atherosclerotic heart disease of native coronary artery without angina pectoris; Z13.220 Encounter for screening for lipoid disorders; Z86.73 Personal history of transient ischemic attack (TIA), and cerebral infarction without residual deficits; Z88.0 Allergy status to penicillin; Z79.899 Other long term (current) drug therapy; Z72.89 Other problems related to lifestyle ==